=== PATIENT | male | born 1945 | race Caucasian/White ===

== ENCOUNTER 2017-11-10 05:25 | Day surgery (SDC) | payer OTHER ==
[~2017-11-10] VITALS: Ht 162.6 cm; Wt 99.8 kg
--- NOTE | ~2017-11-10 | O ---
[facility] [place] [address] OPERATIVE REPORT Name: CARMELA MONCADA Room #: DEP [facility].#: [id number] Admission: 11/10/17 Attend Phys: Hunter Armendariz MD Discharge: 11/10/17 Date of : 47 Report #: [id number] THIS REPORT FOR: //name// CC: Hunter Overton MD PREOPERATIVE DIAGNOSIS: Symptomatic umbilical hernia. POSTOPERATIVE DIAGNOSIS: Symptomatic umbilical hernia. PROCEDURE PERFORMED: Repair of umbilical hernia with medium sized Ventralex patch. SURGEON: Hunter Armendariz MD ANESTHESIA: General anesthesia. COMPLICATIONS: None. ESTIMATED BLOOD LOSS: 5 mL DESCRIPTION OF PROCEDURE: With the patient under general anesthesia, abdomen prepped and draped in a sterile fashion. The patient received IV vancomycin prior to procedure. Timeout was performed. A 0.25% Marcaine was used to anesthetize the skin underneath the umbilicus. A curvilinear incision about 3-4 cm was made infraumbilically. The skin was lifted off of the hernia sac. The hernia sac was easily reducible. The hernia sac was fairly thick containing fat and peritoneum. The hernia sac was opened up. I did not see anything on the inside. The peritoneum of the hernia sac was closed with 4-0 PDS running fashion. The hernia sac was then reduced back into the properitoneal space. Properitoneal dissection was then performed. This was performed with cautery and blunt dissection. The properitoneal space was opened up without difficulty. A medium size Ventralex patch was then placed. The fascia defect was about 2 cm in length. The Ventralex patch opened up well. The strap was then sewn to the fascia. The fascia was closed with 0 Prolene in horizontal mattress fashion x 2. This incorporated the strap to the fascial closure. The strap was then trimmed off to the fascia level. Irrigation was performed. Skin of the umbilicus was then sewn down to the fascia level using 4-0 PDS. The skin incision was then closed with a 5-0 PDS running subcuticular fashion. Steri-Strip applied, 4x4's was placed in the umbilicus. OpSite was used for dressing. The patient tolerated the procedure well and was taken to recovery room. <ELECTRONICALLY SIGNED> By: Hunter Armendariz MD 11/25/17 1513 [id number] Hunter Armendariz MD /nt
[~2017-11-10 05:25] MED LIST: ACCUNEB0.63 MG/3 INH; ALBUTEROL NEB IH; ALLEGRA ALLERG180 MG PO; ALLEGRA ALLERGY60 MG PO; ASPIRIN EC81 M1 PO; ATROVENT HFA14 GM INH; BENADRYL25 MG PO; BREO ELLIPTA 11 EACH INH; BUPROPION XL150 MG PO; CLARITIN10 MG PO; CRESTOR10 MG PO; ENDOCET 5-3251 EACH PO; EPIPEN 2-P0.3 MG/0.3 IM; FLEXERIL PO; FLONASE MM; FUROSEMIDE 40 M40 MG PO; HUMALOG100 UNIT/1 SQ; HYDROCHLOROTHIA25 M1 PO; K-DUR 20 MEQ T20 MEQ PO; LANTUS SQ; LASIX 20 MG TAB20 MG PO; LEVEMIR SUBQ; LIPITOR 20 MG T20 M1 PO; LISINOPRIL10 MG PO; LISINOPRIL20 MG PO; MELATONIN 10 M1 EACH PO; MELATONIN3 MG PO; METFORMIN HCL500 MG PO; NOVOLOG100 UNIT/1 SUBQ; OXYCONTIN10 M1 PO; PACERONE 200 M200 M1 PO; PAXIL10 MG PO; PAXIL20 MG PO; PRAVACHOL40 MG PO; PREDNISONE50 MG PO; PRINIVIL20 M1 PO; PROAIR RESPICL90 MCG INH; QVAR HFA 880 MCG/UN1 IN; SINGULAIR 10 MG10 M1 PO; STOOL SOFTENER1 EAC2 PO; SYMBICORT80 MCG/4.1 INH; TOPROL XL25 MG PO; TUMS PO; VITAMIN B-12500 MCG PO; WELLBUTRIN SR150 MG PO
[2017-11-10 07:29] VITALS: BP 110/70
[2017-11-10 07:50] LABS: HEMATOCRIT 44.5 % (42.0-52.0); HEMOGLOBIN 15.5 gm/dL (14.0-18.0)
[2017-11-10 07:57] LABS: CALCIUM 8.6 mg/dL (8.5-10.1); POTASSIUM 4.4 mmol/L (3.5-5.1)
[2017-11-10] MEDS ORDERED: PERCOCET PO (10:23)
[2018-06-06] MEDS ORDERED: MORPHINE SULFAT15 M3 PO (09:45)
== END 2017-11-10 11:22 | disposition home or self-care (01) ==
LOC: TBA 05:25 → OR 05:25 → TBA 05:26 → OR 10:02
PROVIDERS: Surgery
DX: K42.9 Umbilical hernia without obstruction or gangrene (principal); E11.9 Type 2 diabetes mellitus without complications; J43.8 Other emphysema; E78.00 Pure hypercholesterolemia, unspecified; I48.91 Unspecified atrial fibrillation; G47.33 Obstructive sleep apnea (adult) (pediatric); F32.89 Other specified depressive episodes; F41.8 Other specified anxiety disorders; F17.220 Nicotine dependence, chewing tobacco, uncomplicated; Z95.1 Presence of aortocoronary bypass graft; Z79.4 Long term (current) use of insulin; Z98.890 Other specified postprocedural states; Z88.2 Allergy status to sulfonamides; Z88.8 Allergy status to other drugs, medicaments and biological substances; Z79.82 Long term (current) use of aspirin; Z79.899 Other long term (current) drug therapy; Z79.891 Long term (current) use of opiate analgesic
CPT/HCPCS: 50010; 50101; 50130; 50386; 50403; 56524; 56525; 62110; 62900; 70005

== ENCOUNTER → 2018-08-04 | Outpatient (CLI) | payer OTHER ==
[~2018-08-04] MED LIST changes: +MORPHINE SULFAT15 M3 PO; +PERCOCET PO
== END ==
LOC: CAT 10:00
DX: J43.9 Emphysema, unspecified (principal); E11.9 Type 2 diabetes mellitus without complications; E78.5 Hyperlipidemia, unspecified; G47.30 Sleep apnea, unspecified; Z79.4 Long term (current) use of insulin

== ENCOUNTER → 2019-02-04 | Outpatient (CLI) | payer OTHER | LOC: CAT 10:21 | DX: R91.1 Solitary pulmonary nodule (principal); J43.2 Centrilobular emphysema; I25.810 Atherosclerosis of coronary artery bypass graft(s) without angina pectoris; Z95.1 Presence of aortocoronary bypass graft ==

== ENCOUNTER → 2020-09-06 | Emergency (ER) | payer OTHER ==
[~2020-09-06] VITALS: Ht 175.3 cm; Wt 96.6 kg
[2020-09-06 13:52] VITALS: BP 141/63
== END ==
LOC: ER 11:38
DX: H57.12 Ocular pain, left eye (principal); H53.8 Other visual disturbances; E11.9 Type 2 diabetes mellitus without complications; F32.9 Major depressive disorder, single episode, unspecified; F41.9 Anxiety disorder, unspecified; I48.91 Unspecified atrial fibrillation; E78.00 Pure hypercholesterolemia, unspecified; J44.9 Chronic obstructive pulmonary disease, unspecified; Z90.89 Acquired absence of other organs; Z98.61 Coronary angioplasty status; Z79.899 Other long term (current) drug therapy; Z79.82 Long term (current) use of aspirin; Z88.2 Allergy status to sulfonamides; Z88.1 Allergy status to other antibiotic agents; Z87.891 Personal history of nicotine dependence

== ENCOUNTER → 2021-05-29 | Outpatient (CLI) | payer OTHER | LOC: SJCVC 11:05 | PROVIDERS: ATTEND Internal Medicine Cardiovascular Disease | DX: R94.31 Abnormal electrocardiogram [ECG] [EKG] (principal); I10 Essential (primary) hypertension; I25.10 Atherosclerotic heart disease of native coronary artery without angina pectoris; E78.00 Pure hypercholesterolemia, unspecified; R60.9 Edema, unspecified; E11.9 Type 2 diabetes mellitus without complications; J44.9 Chronic obstructive pulmonary disease, unspecified; G47.30 Sleep apnea, unspecified; E66.9 Obesity, unspecified; G89.29 Other chronic pain; I48.0 Paroxysmal atrial fibrillation; Z95.1 Presence of aortocoronary bypass graft; Z88.2 Allergy status to sulfonamides; Z88.8 Allergy status to other drugs, medicaments and biological substances; Z79.82 Long term (current) use of aspirin; Z79.4 Long term (current) use of insulin; Z79.899 Other long term (current) drug therapy; Z87.891 Personal history of nicotine dependence; Z82.49 Family history of ischemic heart disease and other diseases of the circulatory system ==

== ENCOUNTER → 2021-06-11 | Outpatient (CLI) | payer OTHER | LOC: SJCVCIMAG 07:43 | PROVIDERS: ATTEND Internal Medicine Cardiovascular Disease | DX: R00.0 Tachycardia, unspecified (principal); I25.10 Atherosclerotic heart disease of native coronary artery without angina pectoris; R06.00 Dyspnea, unspecified; R07.89 Other chest pain; I10 Essential (primary) hypertension; E78.00 Pure hypercholesterolemia, unspecified; G89.29 Other chronic pain; R60.9 Edema, unspecified; E11.9 Type 2 diabetes mellitus without complications; Z88.2 Allergy status to sulfonamides; Z88.8 Allergy status to other drugs, medicaments and biological substances; Z95.1 Presence of aortocoronary bypass graft; G47.33 Obstructive sleep apnea (adult) (pediatric); Z79.82 Long term (current) use of aspirin; Z79.4 Long term (current) use of insulin; Z79.899 Other long term (current) drug therapy; Z87.891 Personal history of nicotine dependence; Z82.49 Family history of ischemic heart disease and other diseases of the circulatory system ==

== ENCOUNTER → 2021-08-26 | Outpatient (CLI) | payer OTHER ==
[~2021-08-26] MED LIST changes: +ATORVASTATIN CA80 MG PO; +CO-ENZYME Q-1010 MG PO; +JARDIANCE25 MG PO; +LEVEMIR100 UNIT/1 SUBQ; +SPIRIVA INH; +SYMBICORT160 MCG/4. INH
== END ==
LOC: LAB 06:12
PROVIDERS: ATTEND Student in an Organized Health Care Education/Training Program
DX: U07.1 COVID-19 (principal)